=== PATIENT | male | born 1940 | race Caucasian/White ===

== ENCOUNTER → 2016-07-25 | Outpatient (CLI) | payer MEDICARE, OTHER ==
[~2016-07-25] MED LIST: ALB5IS NEB; ASP81EC PO; Atorvastatin Calcium PO; BUM1T PO; CLOP75TA28 PO; Captopril PO; DIG0125T PO; Glipizide PO; MAGN400T21 PO; POT10T PO; SPIR25TA88 PO
== END | disposition home or self-care (01) ==
LOC: XYW 08:36
PROVIDERS: ATTEND Internal Medicine Cardiovascular Disease
DX: I25.5 Ischemic cardiomyopathy (principal)
CPT/HCPCS: 93306

== ENCOUNTER → 2016-07-31 | Outpatient (CLI) | payer MEDICARE, OTHER ==
[2016-07-31 13:07] LABS: BUN/Creatinine Ratio 13.5; Calcium 9.6 mg/dL (8.5-10.1); Potassium 4.7 mmol/L (3.5-5.1)
[2016-07-31 14:06] LABS: B-Type Natriuretic Peptide 253.45 pg/mL (0-100)
== END | disposition home or self-care (01) ==
LOC: LAB 10:09
PROVIDERS: ATTEND Internal Medicine Cardiovascular Disease
DX: I25.2 Old myocardial infarction (principal)
CPT/HCPCS: 36415; 80048; 83880

== ENCOUNTER → 2016-12-04 | Outpatient (CLI) | payer MEDICARE, OTHER ==
[2016-12-04 11:30] LABS: B-Type Natriuretic Peptide 72.19 pg/mL (0-100)
[2016-12-04 11:31] LABS: BUN/Creatinine Ratio 11.2; Calcium 9.5 mg/dL (8.5-10.1); Potassium 4.5 mmol/L (3.5-5.1)
[2016-12-04 11:36] LABS: Temperature: 23.7 C (20.0-25.0)
== END | disposition home or self-care (01) ==
LOC: LAB 10:46
PROVIDERS: ATTEND Internal Medicine Cardiovascular Disease
DX: I25.5 Ischemic cardiomyopathy (principal)
CPT/HCPCS: 36415; 80048; 83880

== ENCOUNTER → 2017-02-04 | Outpatient (CLI) | payer MEDICARE, OTHER | END | disposition home or self-care (01) | LOC: Rad HDHVI 12:47 | PROVIDERS: ATTEND Internal Medicine Cardiovascular Disease | DX: I08.0 Rheumatic disorders of both mitral and aortic valves (principal); I25.5 Ischemic cardiomyopathy | CPT/HCPCS: 93306 ==

== ENCOUNTER → 2017-02-27 | Outpatient (CLI) | payer MEDICARE, OTHER ==
[~2017-02-27] VITALS: Ht 30.5 cm; Wt 72.6 kg
[~2017-02-27] MED LIST changes: -BUM1T PO; +CAPT25TA76 PO; -Captopril PO; +FUROSEMIDE 40 MG/4 ML VIAL IV ONE; +FUROSEMIDE 40 MG/4 ML VIAL ONE; +GLIP-116 PO; -Glipizide PO; -MAGN400T21 PO; -POT10T PO; +SITA50TA28 PO; +TAMS0.4C36 PO
[2017-02-27 12:50] VITALS: BP 124/64
[2017-02-27 13:20] VITALS: BP 125/66
[2017-02-27 16:36] LABS: BUN/Creatinine Ratio 17.7; Calcium 8.9 mg/dL (8.5-10.1); Potassium 5.1 mmol/L (3.5-5.1)
[2017-02-27 16:45] LABS: B-Type Natriuretic Peptide 151.92 pg/mL (0-100)
[2017-02-27 16:48] LABS: Temperature: 23.3 C (20.0-25.0)
== END | disposition home or self-care (01) ==
LOC: CHF HDHVI 12:43
PROVIDERS: ATTEND Internal Medicine Cardiovascular Disease
DX: I42.9 Cardiomyopathy, unspecified (principal); E87.70 Fluid overload, unspecified; R06.02 Shortness of breath; I13.0 Hypertensive heart and chronic kidney disease with heart failure and stage 1 through stage 4 chronic kidney disease, or unspecified chronic kidney disease; I50.9 Heart failure, unspecified; N18.3 Chronic kidney disease, stage 3 (moderate); J44.9 Chronic obstructive pulmonary disease, unspecified; I48.91 Unspecified atrial fibrillation; I25.10 Atherosclerotic heart disease of native coronary artery without angina pectoris; E11.21 Type 2 diabetes mellitus with diabetic nephropathy; E11.22 Type 2 diabetes mellitus with diabetic chronic kidney disease; Z95.5 Presence of coronary angioplasty implant and graft
CPT/HCPCS: 36415; 80048; 83880; 96374; G0463; J1940

== ENCOUNTER → 2017-02-28 | Outpatient (CLI) | payer MEDICARE, OTHER ==
[~2017-02-28] VITALS: Ht 180.3 cm; Wt 72.6 kg
[~2017-02-28] MED LIST changes: -FUROSEMIDE 40 MG/4 ML VIAL IV ONE; -FUROSEMIDE 40 MG/4 ML VIAL ONE
== END | disposition home or self-care (01) ==
LOC: Rad HDHVI 12:43
PROVIDERS: ATTEND Internal Medicine Cardiovascular Disease
DX: I48.91 Unspecified atrial fibrillation (principal); I25.2 Old myocardial infarction; E78.00 Pure hypercholesterolemia, unspecified; E11.9 Type 2 diabetes mellitus without complications; E11.22 Type 2 diabetes mellitus with diabetic chronic kidney disease; I13.0 Hypertensive heart and chronic kidney disease with heart failure and stage 1 through stage 4 chronic kidney disease, or unspecified chronic kidney disease; I50.9 Heart failure, unspecified; N18.3 Chronic kidney disease, stage 3 (moderate); J44.9 Chronic obstructive pulmonary disease, unspecified; Z95.0 Presence of cardiac pacemaker
CPT/HCPCS: 78472; 96374; 96375; A9505

== ENCOUNTER → 2017-03-08 | Outpatient (CLI) | payer MEDICARE, OTHER ==
[~2017-03-08] VITALS: Ht 30.5 cm; Wt 0.5 kg
[~2017-03-08] MED LIST changes: +MVI in SODIUM CHLORIDE 0.9% 1,000 ML IVB ONE; +MVI in SODIUM CHLORIDE 0.9% 1,010 ML ONE
[2017-03-08 10:53] LABS: Basophils # (auto) 0.1 uL; CONDITION Y; Eosinophils # (auto) 0.1 uL; Eosinophils % (auto) 0.7 % (0.0-7.0); Hematocrit 37.8 % (41.0-53.0); Hemoglobin 12.8 g/dL (13.5-17.5); Lymphocytes # (auto) 0.6 uL; Lymphocytes % (auto) 6.1 % (10.0-50.0); Mean Corpuscular Hemoglobin 28.2 pg (28.0-32.0); Mean Corpuscular Hgb Conc. 33.8 g/dL (32.0-36.0); Mean Corpuscular Volume 83.4 fL (80.0-100.0); Monocytes # (auto) 0.5 uL; Monocytes % (auto) 5.3 % (0.0-12.0); Neutrophils # (auto) 8.8 uL; Neutrophils % (auto) 86.9 % (37.0-80.0); Platelet Count (auto) 342 10^3/uL (140-450); Red Cell Distribution Width 16.2 % (11.6-16.0); White Blood Cell 10.2 10^3/uL (4.4-10.8)
[2017-03-08 11:05] LABS: Albumin 3.6 g/dL (3.4-5.0); BUN/Creatinine Ratio 13.2; Bilirubin, Total 0.8 mg/dL (0.2-1.0); Calcium 8.8 mg/dL (8.5-10.1); Magnesium 1.7 mg/dL (1.6-2.6); Potassium 4.7 mmol/L (3.5-5.1); Total Protein 7.1 g/dL (6.4-8.2)
== END | disposition home or self-care (01) ==
LOC: CHF HDHVI 09:20
PROVIDERS: ATTEND Internal Medicine Cardiovascular Disease
DX: I11.0 Hypertensive heart disease with heart failure (principal); I50.20 Unspecified systolic (congestive) heart failure; I48.91 Unspecified atrial fibrillation; D64.9 Anemia, unspecified; E83.42 Hypomagnesemia; R13.0 Aphagia
CPT/HCPCS: 36415; 80053; 83735; 85025; 96365; 96366; G0463; J3411; J3475

== ENCOUNTER → 2017-03-27 | Outpatient (CLI) | payer MEDICARE, OTHER ==
[~2017-03-27] MED LIST changes: -MVI in SODIUM CHLORIDE 0.9% 1,000 ML IVB ONE; +MVI in SODIUM CHLORIDE 0.9% 500 ML IVB ONE; -SPIR25TA88 PO
[2017-03-27 09:53] LABS: Basophils # (auto) 0.2 uL; Basophils % (auto) 2.3 % (0.0-2.0); Eosinophils # (auto) 0 uL; Eosinophils % (auto) 0.6 % (0.0-7.0); Hematocrit 38.8 % (41.0-53.0); Hemoglobin 13.2 g/dL (13.5-17.5); Lymphocytes # (auto) 0.7 uL; Lymphocytes % (auto) 9.1 % (10.0-50.0); Mean Corpuscular Hemoglobin 27.7 pg (28.0-32.0); Mean Corpuscular Hgb Conc. 33.9 g/dL (32.0-36.0); Mean Corpuscular Volume 81.7 fL (80.0-100.0); Mean Platelet Volume 7.6 fL (7.4-10.4); Monocytes # (auto) 0.5 uL; Monocytes % (auto) 6.5 % (0.0-12.0); Neutrophils # (auto) 6.7 uL; Neutrophils % (auto) 81.5 % (37.0-80.0); Nucleated Red Blood Cells % 0.1 %; Platelet Count (auto) 397 10^3/uL (140-450); Red Cell Distribution Width 15.7 % (11.6-16.0); White Blood Cell 8.2 10^3/uL (4.4-10.8)
[2017-03-27 10:07] LABS: Calcium 9.3 mg/dL (8.5-10.1); Potassium 4.5 mmol/L (3.5-5.1)
[2017-03-27 10:09] LABS: BUN/Creatinine Ratio 10.9
[2017-03-27 13:45] VITALS: BP 121/66
== END | disposition home or self-care (01) ==
LOC: CHF HDHVI 08:42
PROVIDERS: ATTEND Internal Medicine Cardiovascular Disease
DX: I10 Essential (primary) hypertension (principal); E83.42 Hypomagnesemia; D64.9 Anemia, unspecified; C80.1 Malignant (primary) neoplasm, unspecified
CPT/HCPCS: 36415; 80048; 82378; 83735; 85025; 96365; 96366; G0463; J3411; J3475

== ENCOUNTER → 2017-04-01 | Outpatient (CLI) | payer MEDICARE, OTHER ==
[~2017-04-01] MED LIST changes: +CYANOCOBALAMIN (B-12) 1000 MCG/1 ML VIAL IM ONE; +CYANOCOBALAMIN (B-12) 1000 MCG/1 ML VIAL ONE; +SODIUM CHL 3% 250 ML IV ONE; +SODIUM CHL 3% 500 ML ONE
[2017-04-01 09:16] LABS: Basophils # (auto) 0.2 uL; Basophils % (auto) 1.8 % (0.0-2.0); CONDITION Y; Eosinophils # (auto) 0.2 uL; Eosinophils % (auto) 1.5 % (0.0-7.0); Hematocrit 38.6 % (41.0-53.0); Lymphocytes # (auto) 1.4 uL; Mean Corpuscular Hgb Conc. 33.6 g/dL (32.0-36.0); Mean Corpuscular Volume 83.3 fL (80.0-100.0); Mean Platelet Volume 7.9 fL (6.9-10.8); Monocytes # (auto) 0.8 uL; Monocytes % (auto) 6.4 % (0.0-12.0); Neutrophils # (auto) 9.4 uL; Neutrophils % (auto) 78.3 % (37.0-80.0); Platelet Count (auto) 472 10^3/uL (140-450); Red Cell Distribution Width 16.2 % (11.8-14.3); White Blood Cell 11.9 10^3/uL (4.4-10.8)
[2017-04-01 09:27] LABS: Albumin 3.5 g/dL (3.4-5.0); BUN/Creatinine Ratio 11.5; Bilirubin, Total 0.5 mg/dL (0.2-1.0); Calcium 8.9 mg/dL (8.5-10.1); Potassium 4.3 mmol/L (3.5-5.1); Total Protein 7.2 g/dL (6.4-8.2)
[2017-04-01 10:15] VITALS: BP 116/86
[2017-04-01 11:50] VITALS: BP 119/66
[2017-04-01 12:00] VITALS: BP 115/59
[2017-04-01 13:00] VITALS: BP 119/66
[2017-04-01 14:20] VITALS: BP 119/66
[2017-04-01 14:58] VITALS: BP 111/68
== END | disposition home or self-care (01) ==
LOC: CHF HDHVI 08:27
PROVIDERS: ATTEND Internal Medicine Cardiovascular Disease
DX: I10 Essential (primary) hypertension (principal); D64.9 Anemia, unspecified; I25.10 Atherosclerotic heart disease of native coronary artery without angina pectoris; I48.91 Unspecified atrial fibrillation
CPT/HCPCS: 36415; 80053; 80162; 82962; 85025; 96365; 96366; 96372; G0463; J3411; J3420; J3475; 96367

== ENCOUNTER → 2017-04-02 | Outpatient (CLI) | payer MEDICARE, OTHER ==
[~2017-04-02] MED LIST changes: -CYANOCOBALAMIN (B-12) 1000 MCG/1 ML VIAL IM ONE; -CYANOCOBALAMIN (B-12) 1000 MCG/1 ML VIAL ONE; +IOHEXOL 350 MG/ML 100ML IJ ONE; +LEVOFLOXACIN 500MG 100 ML IV ONE; +MAGNESIUM CITRATE SOLUTION 300 ML BTL ONE; +MAGNESIUM CITRATE SOLUTION 300 ML BTL PO ONE; -MVI in SODIUM CHLORIDE 0.9% 1,010 ML ONE; -MVI in SODIUM CHLORIDE 0.9% 500 ML IVB ONE; -SODIUM CHL 3% 250 ML IV ONE; +SODIUM CHL 3% 500 ML IV ONE
[2017-04-02 09:00] VITALS: BP 99/52
[2017-04-02 10:12] LABS: Basophils # (auto) 0.3 uL; Basophils % (auto) 2.3 % (0.0-2.0); Eosinophils # (auto) 0.2 uL; Eosinophils % (auto) 1.3 % (0.0-7.0); Hematocrit 38.7 % (41.0-53.0); Hemoglobin 12.9 g/dL (13.5-17.5); Lymphocytes # (auto) 1.1 uL; Lymphocytes % (auto) 8.8 % (10.0-50.0); Mean Corpuscular Hemoglobin 27.7 pg (28.0-32.0); Mean Corpuscular Hgb Conc. 33.4 g/dL (32.0-36.0); Mean Corpuscular Volume 82.9 fL (80.0-100.0); Mean Platelet Volume 7.9 fL (6.9-10.8); Monocytes # (auto) 0.7 uL; Monocytes % (auto) 5.4 % (0.0-12.0); Neutrophils # (auto) 10.2 uL; Neutrophils % (auto) 82.2 % (37.0-80.0); Platelet Count (auto) 401 10^3/uL (140-450); Red Cell Distribution Width 16.2 % (11.8-14.3); White Blood Cell 12.3 10^3/uL (4.4-10.8)
[2017-04-02 10:14] LABS: Urine Bilirubin Negative (Negative); Urine Blood Negative /uL (Negative); Urine Color Yellow (Yellow); Urine Glucose Normal (Normal); Urine Ketone Negative (Negative); Urine Nitrite Negative (Negative); Urine Urobilinogen Normal (Negative); Urine pH 7.5 (5.0-8.0)
[2017-04-02 10:55] LABS: Albumin 3.4 g/dL (3.4-5.0); BUN/Creatinine Ratio 10.3; Bilirubin, Total 0.6 mg/dL (0.2-1.0); Calcium 9.1 mg/dL (8.5-10.1); Magnesium 1.9 mg/dL (1.6-2.6); Potassium 4.5 mmol/L (3.5-5.1)
[2017-04-02 16:00] VITALS: BP 106/59
== END | disposition home or self-care (01) ==
LOC: CHF HDHVI 08:45
PROVIDERS: ATTEND Internal Medicine Cardiovascular Disease
DX: I10 Essential (primary) hypertension (principal); R74.9 Abnormal serum enzyme level, unspecified; I25.10 Atherosclerotic heart disease of native coronary artery without angina pectoris; E83.42 Hypomagnesemia; D64.9 Anemia, unspecified; N39.0 Urinary tract infection, site not specified
CPT/HCPCS: 36415; 71020; 71260; 74177; 80053; 81003; 82150; 82550; 83690; 83735; 85025; 87086; 96361; 96365; 96375; G0463; J1956; Q9967; 96366; 96367

== ENCOUNTER → 2017-04-03 | Outpatient (CLI) | payer MEDICARE, OTHER ==
[~2017-04-03] VITALS: Ht 1 cm; Wt 0.5 kg
[~2017-04-03] MED LIST changes: -IOHEXOL 350 MG/ML 100ML IJ ONE; -MAGNESIUM CITRATE SOLUTION 300 ML BTL ONE; -MAGNESIUM CITRATE SOLUTION 300 ML BTL PO ONE; +SODIUM CHL 3% 250 ML IV ONE; -SODIUM CHL 3% 500 ML IV ONE
[2017-04-03 10:30] LABS: Calcium 9.5 mg/dL (8.5-10.1); Potassium 3.9 mmol/L (3.5-5.1)
[2017-04-03 10:37] LABS: Basophils # (auto) 0.2 uL; Basophils % (auto) 1.9 % (0.0-2.0); Eosinophils # (auto) 0.1 uL; Eosinophils % (auto) 1.3 % (0.0-7.0); Hematocrit 36.2 % (41.0-53.0); Hemoglobin 12.4 g/dL (13.5-17.5); Lymphocytes % (auto) 10.3 % (10.0-50.0); Mean Corpuscular Hemoglobin 28.3 pg (28.0-32.0); Mean Corpuscular Hgb Conc. 34.3 g/dL (32.0-36.0); Mean Corpuscular Volume 82.5 fL (80.0-100.0); Mean Platelet Volume 7.9 fL (6.9-10.8); Monocytes # (auto) 0.7 uL; Monocytes % (auto) 7.1 % (0.0-12.0); Neutrophils % (auto) 79.4 % (37.0-80.0); Platelet Count (auto) 364 10^3/uL (140-450); Red Cell Distribution Width 16.3 % (11.8-14.3); White Blood Cell 10.1 10^3/uL (4.4-10.8)
[2017-04-03 16:00] VITALS: BP 130/60
[2017-04-03 16:27] LABS: INR 1.05 (0.9-1.15); Partial Thromboplastin Time 33.7 sec (22.64-33.71); Prothrombin Time 11.4 sec (9.37-12.3)
== END | disposition home or self-care (01) ==
LOC: CHF HDHVI 09:35
PROVIDERS: ATTEND Internal Medicine Cardiovascular Disease
DX: I10 Essential (primary) hypertension (principal); D64.9 Anemia, unspecified; I50.9 Heart failure, unspecified; E87.1 Hypo-osmolality and hyponatremia; R11.2 Nausea with vomiting, unspecified
CPT/HCPCS: 36415; 80048; 85025; 85610; 85730; 93005; 96361; 96365; G0463; J1956; 96366; 96367

== ENCOUNTER 2017-04-05 06:55 | Day surgery (SDC) | payer MEDICARE, OTHER ==
[~2017-04-05 06:55] MED LIST changes: -LEVOFLOXACIN 500MG 100 ML IV ONE; -SODIUM CHL 3% 250 ML IV ONE; -SODIUM CHL 3% 500 ML ONE
[2017-04-05 13:50] LABS: Body Fluid Polymorphonuclear 22 %
== END 2017-04-05 12:20 | disposition home or self-care (01) ==
LOC: CATH 06:55
PROVIDERS: ATTEND Internal Medicine Cardiovascular Disease
DX: J90 Pleural effusion, not elsewhere classified (principal); I50.9 Heart failure, unspecified; J44.9 Chronic obstructive pulmonary disease, unspecified
CPT/HCPCS: 32555; 71010; 87205; 89051; J7030; 99152; 99153

== ENCOUNTER → 2017-04-08 | Outpatient (CLI) | payer MEDICARE, OTHER ==
[~2017-04-08] MED LIST changes: +DEXAMETHASONE 4 MG TAB ONE; +DEXAMETHASONE 4 MG TAB PO ONE; +DEXAMETHASONE SOD PHOS 4 MG/1ML SDV INJ IV ONE; +IOHEXOL 350 MG/ML 100ML IJ ONE; +MAGNESIUM CITRATE SOLUTION 300 ML BTL ONE; +MAGNESIUM CITRATE SOLUTION 300 ML BTL PO ONE; +MVI in SODIUM CHLORIDE 0.9% 1,010 ML ONE; +MVI in SODIUM CHLORIDE 0.9% 500 ML IVB ONE
[2017-04-08 10:55] LABS: Basophils # (auto) 0.1 uL; Basophils % (auto) 1.3 % (0.0-2.0); Eosinophils # (auto) 0.1 uL; Eosinophils % (auto) 1.3 % (0.0-7.0); Hematocrit 37.5 % (41.0-53.0); Hemoglobin 12.4 g/dL (13.5-17.5); Lymphocytes # (auto) 0.9 uL; Lymphocytes % (auto) 7.8 % (10.0-50.0); Mean Corpuscular Hemoglobin 27.3 pg (28.0-32.0); Mean Corpuscular Hgb Conc. 33.2 g/dL (32.0-36.0); Mean Corpuscular Volume 82.2 fL (80.0-100.0); Mean Platelet Volume 7.9 fL (6.9-10.8); Monocytes # (auto) 0.5 uL; Monocytes % (auto) 4.1 % (0.0-12.0); Neutrophils # (auto) 9.7 uL; Neutrophils % (auto) 85.5 % (37.0-80.0); Platelet Count (auto) 280 10^3/uL (140-450); Red Cell Distribution Width 16.1 % (11.8-14.3); White Blood Cell 11.4 10^3/uL (4.4-10.8)
[2017-04-08 11:04] LABS: BUN/Creatinine Ratio 8.8; Calcium 8.7 mg/dL (8.5-10.1); Potassium 4.2 mmol/L (3.5-5.1)
[2017-04-08 13:30] VITALS: BP 120/64
== END | disposition home or self-care (01) ==
LOC: Rad HDHVI 09:41
PROVIDERS: ATTEND Internal Medicine Cardiovascular Disease
DX: I10 Essential (primary) hypertension (principal); J90 Pleural effusion, not elsewhere classified; J98.11 Atelectasis; I70.0 Atherosclerosis of aorta; D64.9 Anemia, unspecified; E83.42 Hypomagnesemia; R53.83 Other fatigue
CPT/HCPCS: 36415; 70470; 71020; 80048; 83735; 85025; 96365; 96366; 96375; G0463; J3411; J3475; J8540; Q9967; 96367; 96374